=== PATIENT | female | born 1990 | race American Indian/Alaskan Native ===

== ENCOUNTER 2017-12-03 14:22 | Emergency (ER) | payer MEDICAID ==
[2017-12-03 14:49] VITALS: BP 156/100
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
--- NOTE | 2017-12-03 16:20 | XRay Report ---
FINAL REPORT EXAM: XR HAND 3+V RT HISTORY: right hand pain and swelling COMPARISON: None available. FINDINGS: Three views the right hand obtained. Bony structures are intact. Joint spaces are preserved. No acute fracture dislocation. IMPRESSION: No acute bony abnormality.
== END 2017-12-03 16:50 | disposition home or self-care (01) ==
LOC: ED 14:22
DX: S60.221A Contusion of right hand, initial encounter (principal); Y04.2XXA Assault by strike against or bumped into by another person, initial encounter; Y93.89 Activity, other specified; Y99.8 Other external cause status; Y92.89 Other specified places as the place of occurrence of the external cause